=== PATIENT | male | born 1955 | race Caucasian/White ===

== ENCOUNTER 2020-09-13 11:08 | Day surgery (SDC) | payer MEDICARE ==
[~2020-09-13] VITALS: Ht 172.7 cm; Wt 102.0 kg
[~2020-09-13 11:08] MED LIST: ALOGLIPTIN PO; AMLO5 PO; GLIP10ER PO; HYDCHL25 PO; INSULANI SC; LEVOTHYROXINE200 MCG PO; LISI20 PO; SERT100 PO
[2020-09-13] MEDS ORDERED: ASPI81CH (12:04)
== END 2020-09-13 13:42 | disposition home or self-care (01) ==
LOC: ORSCSDS 11:08
PROVIDERS: Surgery
PROC: 0DBP8ZX Excision of Rectum, Via Natural or Artificial Opening Endoscopic, Diagnostic (ICD-10-PCS; principal; 2020-09-13 13:00)
DX: Z12.11 Encounter for screening for malignant neoplasm of colon (principal); K62.1 Rectal polyp; E78.5 Hyperlipidemia, unspecified; E11.22 Type 2 diabetes mellitus with diabetic chronic kidney disease; I12.9 Hypertensive chronic kidney disease with stage 1 through stage 4 chronic kidney disease, or unspecified chronic kidney disease; N18.9 Chronic kidney disease, unspecified; Z79.82 Long term (current) use of aspirin; Z79.4 Long term (current) use of insulin; Z79.899 Other long term (current) drug therapy
CPT/HCPCS: 82947; 88305; J0330; J0461; J2405; J2704; J7120